=== PATIENT | female | born 1945 | race Two or more races ===

== ENCOUNTER 2025-10-13 23:09 | Emergency (ER) | payer OTHER ==
[~2025-10-13] VITALS: Ht 152.4 cm; Wt 59.2 kg
--- NOTE | 2025-10-14 00:29 | ED.PDOC ---
Marie. trauma (HPI) HPI Comments HPI: Poor Historian. 79-year-old female accompanied by her daughter at bedside. Patient was brought in for evaluation of a mechanical slip and fall from a standing position because of the wet floor. Patient fell backwards and hit the back of her head. No loss of consciousness. The patient denies any dizziness or any other acute symptoms. Past Medical History: Diabetes, hyperlipidemia Past Surgical History: Denies any REVIEW OF SYSTEMS: CONSTITUTIONAL: Denies acute: fever, diaphoresis, chills, generalized weakness. HEAD: Denies acute: photophobia Eyes: Denies acute: Double vision, vision loss, eye pain, eye discharge. EARS: Denies acute: tinnitus, hearing loss, ear discharge, ear pain, THROAT: Denies acute: sore throat, swelling, difficulty swallowing , pain with swallowing, change in voice. NECK: Denies acute: neck swelling, stiff neck. HEART: Denies acute : chest pain, palpitations, LUNGS: Denies acute: SOB, wheezing, cough, hemoptysis ABDOMEN: Denies acute: abdominal pain, Nausea, Vomiting, diarrhea, melena , hematemesis, hematochezia SKIN: Denies acute: rash, redness, lesions, itchiness. EXTREMITIES: Denies acute: calf pain, numbness, tingling, weakness, denies pain in extremity. Denies acute: Low back pain. Neuro: Denies acute: focal neurological deficit, motor or sensory focal neurological deficit, tremors, seizure like activity, confusion, dizziness, change in mental status, loss of bowel or bladder function, cauda equina like symptoms. : Denies acute: dysuria, hematuria, flank pain, increase in urinary frequency. PSYCH: Denies acute: hallucination, suicidal ideation, homicidal ideation. FEMALE: Denies acute: abnormal vaginal bleeding, foul odor, unusual discharge. PHYSICAL EXAM: General: ----mild----acute distress, awake and alert. Head: normocephalic, atraumatic. No appreciated scalp hematoma No raccoon's eyes, no galloway sign. Neck: supple, trachea is midline, no swelling. Throat: Normal phonation. Eyes:, no erythema, no purulent discharge, no proptosis, no icterus. Heart: regular rate, regular rhythm, no significant murmur appreciated. Lungs: no apparent respiratory distress, Able to speak in full sentences. No wheezing, no rhonchi, no crackles. No stridors Clear to auscultation bilaterally. Abdomen: non tender to palpation, non distended, soft, no guarding, no rebound, + bowel sounds. Neuro: Awake, Alert, oriented to name, self, situation, follows commands GCS=15. Speech is normal. Skin: no petechia, no purpura, no cyanosis, non-pale, not jaundice. Lower extremities: --no - Pitting edema no deformity, no focal swelling, no calf TTP. Makes eye contact. moves all four extremities. Face: no apparent facial droop. No nuchal rigidity, Kernig's sign, Brudzinski's sign, no meningeal signs. ED COURSE: DISCLAIMER: This medical document was created using an electronic medical record system with voice recognition software and computerized dictation system. Although this document has been carefully reviewed, there might still be some phonetic and typographical errors. Occasional wrong-word or "sound-alike" substitutions may have occurred due to the inherent limitations of voice recognition software. These areas are purely typographical due to imperfections of the software programs and do not reflect any compromise in the patient's medical care. Please read the chart carefully and recognize, using context, where these substitutions have occurred. Chief Complaint: Fall Injury Time Seen by MD: 23:45 Reviewed notes: Allergies Allergies: Coded Allergies: NO KNOWN ALLERGIES (Unverified , 10/13/25) Information Source: Patient, Relative Mode of Arrival: Ambulatory X-Ray, Labs, Meds, VS Vital Signs Date Time Temp Pulse Resp B/P (MAP) Pulse Ox O2 Delivery O2 Flow Rate FiO2 10/14/25 01:15 83 16 98 Room Air 10/14/25 01:15 98.1 83 16 134/67 (89) 98 98.1 10/13/25 23:13 97.6 77 16 158/90 98 97.6 Time of 1ST Reevaluation: 02:40 Reevaluation 1ST: Resolved Patient Education/Counseling: Diagnosis, Treatment Family Education/Counseling: Diagnosis, Treatment Departure 1 Departure Time of Disposition: 00:28 Impression: Primary Impression: Closed head injury Additional Impressions: Fall Concussion Abnormal finding on CT scan Thyroid nodule Disposition: HOME / SELF CARE / HOMELESS Condition: Stable Additional Instructions: Additional instructions: Please read all instructions provided in this packet carefully. You MUST follow-up with your primary care/family doctor in 1 to 2 days. If you are unable to see your primary care/family doctor, please return to our emergency room for re-assessment and re-evaluation in 1 to 2 days. Return to the emergency room here in our facility or to the nearest ER [facility] if your symptoms change or worsen. CONSULTATIONS: you MUST Follow-up for consultation as soon as possible with: --neurology in 1-2 days. Please call for appointment. You MUST call the consultants office yourself to make an appointment. You may need to arrange that through your insurance and/or your primary/family doctor. If you are unable to see the software consultant in 1 to 2 days, you must return to our emergency room (or any other ER of your choice) for re-assessment and re- evaluation. Adequate fluid hydration. Although you have been discharged from the Emergency Department, this does not mean that you have a "clean bill of health". No definitive diagnosis for your symptoms has been made today. It is possible that you are in the process of dev eloping a serious illness. This is why you must return to the ED without fail if any new or worsening symptoms develop. Fall precautions Below is a copy of your radiological report for follow up: [place] [id number] Ph: [phone] DIAGNOSTIC IMAGING Diagnostic Imaging Report : [id number] Signed PATIENT: MARIA R GONZALEZ ACCT: [id number] UNIT: [id number] : 1945 LOC: ER ROOM / BED: / AGE / SEX: 79 / F ADM STATUS: REG ER SERVICE [id number] ORDERING PHYSICIAN: SAMUEL BLANC DO PROCEDURE(s): CS2 - CERVICAL WITHOUT CONTRAST REASON: fall injury ORDER NUMBER(s): [id number], ACCESSION NUMBER(s): [id number] COMPUTERIZED TOMOGRAPHY OF THE CERVICAL SPINE, NONCONTRAST REASON FOR EXAM: fall injury COMPARISON: None TECHNIQUE: CT of the entire cervical spine was performed in routine fashion with sagittal and coronal reconstructions. Soft tissues and bone windows were filmed. Radiation optimization: All CT scans at this facility use at least one of these dose optimization techniques: Automated exposure control mA and/or kV adjustment per patient size (includes targeted exams where dose is matched to clinical indication) or iterative reconstruction. RADIATION DOSE: CTDI: 15 mGy DLP: 410 mGy-cm FINDINGS: The vertebral bodies are normal in height and there is no evidence of fracture. There is mild reversal of the normal cervical lordosis which may be secondary to patient positioning or muscular spasm. There is severe disc height loss throughout the cervical spine with endplate hypertrophy. There is no listhesis. There is mild and moderate facet joint narrowing throughout the cervical spine. The visualized lung apices are grossly unremarkable. The prevertebral soft tissues are within normal limits. There are multiple left thyroid nodules measuring up to 3.9 x 3.3 cm. No pathologic lymphadenopathy is identified in the neck. IMPRESSION: No evidence of cervical spine fracture or subluxation. There is mild reversal of the normal cervical lordosis which may be secondary to patient positioning or muscular spasm. Correlate clinically. Multiple left thyroid nodules measuring up to 3.9 cm. Routine outpatient thyroid ultrasound is recommended. ATED BY: LORENZO DIXON MD DICTATED DATE/TIME: 10/14/25226 SIGNED BY: LORENZO DIXON MD SIGNED DATE/TIME: 10/14/25226 CC: Discharged With: Self, Relative SAMUEL BLANC Oct 14, 2025 00:29
--- NOTE | 2025-10-14 00:53 | DVH ---
CT HEAD WITHOUT CONTRAST HISTORY: Fall/injury. COMPARISON: CT BRAIN/HEAD WO on DOS: 08/02/24. CONTRAST: Studies were performed without contrast. TECHNIQUE: CT exam of the head carried out from skull base to vertex without intravenous contrast. This exam was performed according to our departmental dose optimization program. Up-to-date CT equipment and radiation dose reduction techniques are utilized as appropriate. DOSE: CTDIvol: 55.2 mGy; DLP: 1087.1 mGy-cm. FINDINGS: HEAD: BRAIN PARENCHYMA: No acute hemorrhage, large vascular territory infarct, or mass effect. White matter is within normal limits for age. Mild cerebral volume loss, which is commensurate for age. VENTRICLES/EXTRA-AXIAL SPACES: No evidence of hydocephalus. No extra-axial collection. Basal cisterns are patent. EXTRACRANIAL STRUCTURES: No acute or suspicious ossues abnormality. Normal soft tissues. Right ethmoid air cells with two benign osteomas measuring up to 7 mm; otherwise, imaged portions of the paranasal sinuses and mastoids demonstrate no significant abnormality. Orbits are unremarkable. Marked calcific atherosclerosis of the carotid siphons and mild calcific atherosclerosis of the vertebral artery V4 segments. IMPRESSION: No acute intracranial abnormality.
[2025-10-14 01:15] VITALS: BP 134/67; PULSE 83; RESP 16; TEMP 98.1; O2SAT 98
--- NOTE | 2025-10-14 02:30 | DVH ---
COMPUTERIZED TOMOGRAPHY OF THE CERVICAL SPINE, NONCONTRAST REASON FOR EXAM: fall injury COMPARISON: None TECHNIQUE: CT of the entire cervical spine was performed in routine fashion with sagittal and coronal reconstructions. Soft tissues and bone windows were filmed. Radiation optimization: All CT scans at this facility use at least one of these dose optimization techniques: Automated exposure control mA and/or kV adjustment per patient size (includes targeted exams where dose is matched to clinical indication) or iterative reconstruction. RADIATION DOSE: CTDI: 15 mGy DLP: 410 mGy-cm FINDINGS: The vertebral bodies are normal in height and there is no evidence of fracture. There is mild reversal of the normal cervical lordosis which may be secondary to patient positioning or muscular spasm. There is severe disc height loss throughout the cervical spine with endplate hypertrophy. There is no listhesis. There is mild and moderate facet joint narrowing throughout the cervical spine. The visualized lung apices are grossly unremarkable. The prevertebral soft tissues are within normal limits. There are multiple left thyroid nodules measuring up to 3.9 x 3.3 cm. No pathologic lymphadenopathy is identified in the neck. IMPRESSION: No evidence of cervical spine fracture or subluxation. There is mild reversal of the normal cervical lordosis which may be secondary to patient positioning or muscular spasm. Correlate clinically. Multiple left thyroid nodules measuring up to 3.9 cm. Routine outpatient thyroid ultrasound is recommended.
== END 2025-10-14 02:49 | disposition home or self-care (01) ==
LOC: ER 23:09
DX: S06.0X0A Concussion without loss of consciousness, initial encounter (principal); S09.8XXA Other specified injuries of head, initial encounter; R93.89 Abnormal findings on diagnostic imaging of other specified body structures; E04.2 Nontoxic multinodular goiter; E78.5 Hyperlipidemia, unspecified; E11.9 Type 2 diabetes mellitus without complications; W01.0XXA Fall on same level from slipping, tripping and stumbling without subsequent striking against object, initial encounter; Y93.89 Activity, other specified; Y92.89 Other specified places as the place of occurrence of the external cause; Y99.8 Other external cause status
CPT/HCPCS: 70450; 72125